=== PATIENT | female | born 1970 | race Caucasian/White ===

== ENCOUNTER 2018-09-15 11:28 | Emergency (ER) | payer MEDICAID ==
[~2018-09-15] VITALS: Ht 167.6 cm; Wt 80.0 kg
--- NOTE | 2018-09-15 11:49 | NUR ---
Assumed care of patient. Patient ambulated to restroom with steady gait, urine sample collected and sent to lab. Patient's at bedside.
[2018-09-15 11:59] LABS: BASOPHILS # (AUTO) 0.1 X10'3 (0-0.2); BASOPHILS % (AUTO) 0.7 % (0-1); EOSINOPHILS # (AUTO) 0.2 X10'3 (0-0.9); EOSINOPHILS % (AUTO) 1.7 % (0-6); HEMATOCRIT 47.6 % (35.0-45.0); HEMOGLOBIN 16.3 g/dl (12.0-16.0); LYMPHOCYTES # (AUTO) 3.5 X10'3 (1.1-4.8); LYMPHOCYTES % (AUTO) 35.8 % (21-51); MEAN CORPUSCULAR HEMOGLOBIN 32.4 PG (27.0-31.0); MEAN CORPUSCULAR HGB CONC 34.3 g/dL (33.0-36.5); MEAN CORPUSCULAR VOLUME 94.6 FL (78-98); MEAN PLATELET VOLUME 8.2 FL (7.4-10.4); MONOCYTES # (AUTO) 0.6 X10'3 (0-0.9); MONOCYTES % (AUTO) 6.3 % (2-12); NEUTROPHILS # (AUTO) 5.4 X10'3 (1.8-7.7); NEUTROPHILS % (AUTO) 55.5 % (42-75); PLATELET COUNT 349 X10'3 (140-440); RED BLOOD COUNT 5.03 X10'6 (4.20-5.60); RED CELL DISTRIBUTION WIDTH 13.4 % (11.5-14.5); WHITE BLOOD COUNT 9.8 X10'3 (4.5-11.0)
[2018-09-15 12:17] LABS: ALANINE AMINOTRANSFERASE 21 U/L (12-78); ALBUMIN 3.9 G/DL (3.4-5.0); ALKALINE PHOSPHATASE 54 IU/L (46-116); ANION GAP 9 (8-16); ASPARTATE AMINO TRANSFERASE 11 U/L (10-37); BILIRUBIN,TOTAL 0.4 MG/DL (0.1-1.0); BLOOD UREA NITROGEN 17 MG/DL (7-18); BUN/CREATININE RATIO 21.5 (6.6-38.0); CHLORIDE 109 MMOL/L (99-107); CREATININE 0.79 MG/DL (0.40-0.90); GLUCOSE 87 MG/DL (70-104); LIPASE 394 U/L (73-393); POTASSIUM 4.3 MMOL/L (3.5-5.1); SODIUM 141 MMOL/L (135-145); TOTAL CARBON DIOXIDE 22.8 MMOL/L (24-32); TOTAL PROTEIN 7.8 G/DL (6.4-8.2); eGFR 77 ML/MIN
[2018-09-15 12:35] LABS: URINE HCG NEGATIVE (NEG)
[2018-09-15 12:41] LABS: CLARITY,URINE SLIGHTLY CLOUDY (Clear); COLOR,URINE YELLOW (Yellow); GLUCOSE, URINE NEGATIVE (Neg); KETONES,URINE NEGATIVE (Neg); LEUKOCYTE ESTERASE ,URINE NEGATIVE (Neg); NITRITES, URINE NEGATIVE (Neg); OCCULT BLOOD,URINE NEGATIVE (Neg); PH,URINE 5.5 (4.8-8.0); PROTEIN,URINE NEGATIVE (Neg); UROBILINOGEN,URINE 0.2 E.U/dL (0.2-1.0)
[2018-09-15 12:43] LABS: UA COLLECTION TYPE CLN CATCH MIDSTREAM
[2018-09-15 12:46] LABS: SQUAMOUS EPITHELIAL CELL,UR FEW /LPF (FEW)
[2018-09-15 12:47] LABS: BACTERIA,URINE FEW /HPF (Neg); RBC,URINE 0-2 /HPF (0-2); WBC,URINE NONE SEEN /HPF (0-4)
[2018-09-15 13:14] VITALS: BP 140/81
[2018-09-15 16:02] LABS: OCCULT BLOOD STOOL POSITIVE (Neg)
== END 2018-09-15 13:15 | disposition home or self-care (01) ==
LOC: ER 11:28
DX: K92.2 Gastrointestinal hemorrhage, unspecified (principal); K92.1 Melena; F17.200 Nicotine dependence, unspecified, uncomplicated; F12.90 Cannabis use, unspecified, uncomplicated; Z86.73 Personal history of transient ischemic attack (TIA), and cerebral infarction without residual deficits; Z88.6 Allergy status to analgesic agent
CPT/HCPCS: 36415; 80053; 81001; 81025; 82272; 83690; 85025; 99283

== ENCOUNTER 2018-10-15 00:28 | Emergency (ER) | payer MEDICAID ==
[~2018-10-15] VITALS: Ht 167.6 cm; Wt 88.6 kg
[2018-10-15] MEDS ORDERED: iohexol 300mg/ml 100ml inj. ONE (00:49)
[2018-10-15 02:50] LABS: BASOPHILS # (AUTO) 0.1 X10'3 (0-0.2); BASOPHILS % (AUTO) 0.5 % (0-1); EOSINOPHILS # (AUTO) 0.2 X10'3 (0-0.9); EOSINOPHILS % (AUTO) 1.7 % (0-6); HEMOGLOBIN 13.4 g/dl (12.0-16.0); LYMPHOCYTES # (AUTO) 4.4 X10'3 (1.1-4.8); LYMPHOCYTES % (AUTO) 41.4 % (21-51); MEAN CORPUSCULAR HEMOGLOBIN 32.3 PG (27.0-31.0); MEAN CORPUSCULAR HGB CONC 34.3 g/dL (33.0-36.5); MEAN CORPUSCULAR VOLUME 94.1 FL (78-98); MEAN PLATELET VOLUME 7.9 FL (7.4-10.4); MONOCYTES # (AUTO) 0.9 X10'3 (0-0.9); MONOCYTES % (AUTO) 8.5 % (2-12); NEUTROPHILS # (AUTO) 5.1 X10'3 (1.8-7.7); NEUTROPHILS % (AUTO) 47.9 % (42-75); PLATELET COUNT 276 X10'3 (140-440); RED BLOOD COUNT 4.14 X10'6 (4.20-5.60); WHITE BLOOD COUNT 10.7 X10'3 (4.5-11.0)
[2018-10-15 03:06] LABS: ALANINE AMINOTRANSFERASE 21 U/L (12-78); ALBUMIN 3.3 G/DL (3.4-5.0); ALBUMIN/GLOBULIN RATIO 1.1 (1.1-1.5); ALKALINE PHOSPHATASE 45 IU/L (46-116); ANION GAP 8 (8-16); ASPARTATE AMINO TRANSFERASE 11 U/L (10-37); BILIRUBIN,TOTAL 0.4 MG/DL (0.1-1.0); BLOOD UREA NITROGEN 18 MG/DL (7-18); BUN/CREATININE RATIO 20.7 (6.6-38.0); CALCIUM 8.4 MG/DL (8.5-10.1); CHLORIDE 107 MMOL/L (99-107); CREATININE 0.87 MG/DL (0.40-0.90); GLUCOSE 98 MG/DL (70-104); POTASSIUM 3.4 MMOL/L (3.5-5.1); SODIUM 141 MMOL/L (135-145); TOTAL CARBON DIOXIDE 26.5 MMOL/L (24-32); TOTAL PROTEIN 6.3 G/DL (6.4-8.2); eGFR 69 ML/MIN
[2018-10-15 03:46] VITALS: BP 96/58
== END 2018-10-15 03:48 | disposition home or self-care (01) ==
LOC: ER 00:28
DX: K11.20 Sialoadenitis, unspecified (principal); M54.2 Cervicalgia; F12.90 Cannabis use, unspecified, uncomplicated; Z86.73 Personal history of transient ischemic attack (TIA), and cerebral infarction without residual deficits
CPT/HCPCS: 36415; 70491; 80053; 85025; 99284; Q9967

== ENCOUNTER 2021-04-23 11:47 | Emergency (ER) | payer MEDICAID ==
[~2021-04-23] VITALS: Ht 167.6 cm; Wt 90.9 kg
--- NOTE | 2021-04-23 12:00 | NUR ---
per meghan, due to pt concern and feeling this may be shingles, do not order acs protocol. only perform an ekg. order placed as received
[2021-04-23 15:33] VITALS: BP 110/72
[2021-04-23 15:38] LABS: BASOPHILS # (AUTO) 0.1 X10'3 (0-0.2); BASOPHILS % (AUTO) 0.7 % (0-1); EOSINOPHILS # (AUTO) 0.2 X10'3 (0-0.9); EOSINOPHILS % (AUTO) 2.8 % (0-6); HEMATOCRIT 43.4 % (35.0-45.0); HEMOGLOBIN 14.6 g/dl (12.0-16.0); LYMPHOCYTES # (AUTO) 3.1 X10'3 (1.1-4.8); LYMPHOCYTES % (AUTO) 39.9 % (21-51); MEAN CORPUSCULAR HEMOGLOBIN 31.2 PG (27.0-31.0); MEAN CORPUSCULAR HGB CONC 33.6 g/dL (33.0-36.5); MEAN PLATELET VOLUME 8.2 FL (7.4-10.4); MONOCYTES # (AUTO) 0.6 X10'3 (0-0.9); MONOCYTES % (AUTO) 7.6 % (2-12); NEUTROPHILS # (AUTO) 3.8 X10'3 (1.8-7.7); PLATELET COUNT 307 X10'3 (140-440); RED BLOOD COUNT 4.67 X10'6 (4.20-5.60); RED CELL DISTRIBUTION WIDTH 13.5 % (11.5-14.5); WHITE BLOOD COUNT 7.8 X10'3 (4.5-11.0)
[2021-04-23 15:39] LABS: ALANINE AMINOTRANSFERASE 24 U/L (12-78); ALBUMIN 3.5 G/DL (3.4-5.0); ALBUMIN/GLOBULIN RATIO 1.1 (1.1-1.5); ALKALINE PHOSPHATASE 73 IU/L (46-116); ANION GAP 5 (8-16); ASPARTATE AMINO TRANSFERASE 10 U/L (10-37); BILIRUBIN,TOTAL 0.4 MG/DL (0.1-1.0); BLOOD UREA NITROGEN 18 MG/DL (7-18); BUN/CREATININE RATIO 23.1 (6.6-38.0); CALCIUM 8.6 MG/DL (8.5-10.1); CHLORIDE 112 MMOL/L (99-107); CREATININE 0.78 MG/DL (0.40-0.90); GLUCOSE 88 MG/DL (70-104); POTASSIUM 5.1 MMOL/L (3.5-5.1); SODIUM 144 MMOL/L (135-145); TOTAL CARBON DIOXIDE 27.2 MMOL/L (24-32); TOTAL PROTEIN 6.8 G/DL (6.4-8.2); eGFR 78 ML/MIN
[2021-04-23 15:46] LABS: MAGNESIUM 2.2 MG/DL (1.5-2.4)
[2021-04-23 16:51] LABS: D-DIMER < 0.19 MG/L FEU (0-0.50)
== END 2021-04-23 17:34 | disposition home or self-care (01) ==
LOC: ER 11:47
DX: R07.89 Other chest pain (principal); F12.90 Cannabis use, unspecified, uncomplicated; I50.9 Heart failure, unspecified; Z86.73 Personal history of transient ischemic attack (TIA), and cerebral infarction without residual deficits
CPT/HCPCS: 36415; 71045; 80053; 83735; 83880; 84484; 85025; 85379; 93005; 99285

== ENCOUNTER 2021-05-05 12:04 | Emergency (ER) | payer MEDICAID ==
[~2021-05-05] VITALS: Ht 167.6 cm; Wt 97.7 kg
[2021-05-05 12:21] VITALS: BP 125/67
[2021-05-05 12:42] LABS: BASOPHILS % (AUTO) 0.4 % (0-1); EOSINOPHILS # (AUTO) 0.2 X10'3 (0-0.9); EOSINOPHILS % (AUTO) 2.7 % (0-6); HEMATOCRIT 45.6 % (35.0-45.0); HEMOGLOBIN 15.2 g/dl (12.0-16.0); LYMPHOCYTES # (AUTO) 2.3 X10'3 (1.1-4.8); LYMPHOCYTES % (AUTO) 30.1 % (21-51); MEAN CORPUSCULAR HEMOGLOBIN 30.7 PG (27.0-31.0); MEAN CORPUSCULAR HGB CONC 33.3 g/dL (33.0-36.5); MEAN CORPUSCULAR VOLUME 92.3 FL (78-98); MEAN PLATELET VOLUME 8.2 FL (7.4-10.4); MONOCYTES # (AUTO) 0.5 X10'3 (0-0.9); MONOCYTES % (AUTO) 6.4 % (2-12); NEUTROPHILS # (AUTO) 4.6 X10'3 (1.8-7.7); NEUTROPHILS % (AUTO) 60.4 % (42-75); PLATELET COUNT 313 X10'3 (140-440); RED BLOOD COUNT 4.94 X10'6 (4.20-5.60); RED CELL DISTRIBUTION WIDTH 13.8 % (11.5-14.5); WHITE BLOOD COUNT 7.6 X10'3 (4.5-11.0)
[2021-05-05 13:03] LABS: ALANINE AMINOTRANSFERASE 27 U/L (12-78); ALBUMIN 3.7 G/DL (3.4-5.0); ALBUMIN/GLOBULIN RATIO 1.1 (1.1-1.5); ALKALINE PHOSPHATASE 84 IU/L (46-116); ANION GAP 8 (8-16); ASPARTATE AMINO TRANSFERASE 16 U/L (10-37); BILIRUBIN,TOTAL 0.5 MG/DL (0.1-1.0); BLOOD UREA NITROGEN 14 MG/DL (7-18); BUN/CREATININE RATIO 19.2 (6.6-38.0); CHLORIDE 112 MMOL/L (99-107); CREATININE 0.73 MG/DL (0.40-0.90); GLUCOSE 127 MG/DL (70-104); POTASSIUM 4.3 MMOL/L (3.5-5.1); SODIUM 146 MMOL/L (135-145); TOTAL CARBON DIOXIDE 25.7 MMOL/L (24-32); TOTAL PROTEIN 7.2 G/DL (6.4-8.2); eGFR 84 ML/MIN
[2021-05-05 13:09] LABS: CALCIUM 8.7 MG/DL (8.5-10.1)
== END 2021-05-05 14:59 | disposition home or self-care (01) ==
LOC: ER 12:05
DX: R07.89 Other chest pain (principal); F12.90 Cannabis use, unspecified, uncomplicated; Z86.73 Personal history of transient ischemic attack (TIA), and cerebral infarction without residual deficits; Z98.890 Other specified postprocedural states
CPT/HCPCS: 36415; 71045; 80053; 83880; 84484; 85025; 93005; 99285